=== PATIENT | female | born 1990 | race Caucasian/White ===

== ENCOUNTER 2025-04-18 08:52 | Observation (INO) | payer OTHER ==
[2025-04-18] MEDS ORDERED: HALOPERIDOL LACTATE 5 MG/ML ONE (09:22)
[2025-04-18] MEDS ORDERED: ONDANSETRON 4 MG/2 ML VIAL ONE (09:23)
[2025-04-18] MEDS: SODIUM CHLORIDE 0.9% 500 ML INFUS.BAG IV ONE (09:57)
[2025-04-18] MEDS: ONDANSETRON 4 MG/2 ML VIAL IVPUSH ONE (09:57)
[2025-04-18 10:02] LABS: ABSOLUTE IMMATURE GRANULOCYTES 0.06 x10^3/uL (0.0-0.031); BASOPHILS # 0.05 x10^3/uL (0.01-0.08); EOSINOPHIL % 0.3 % (0.7-5.8); EOSINOPHILS # 0.03 x10^3/uL (0.04-0.36); MCHC 34.1 g/dl (32.2-35.5); MEAN CELL VOLUME 88.4 fl (79.4-94.8); MEAN PLT VOLUME 10.3 fl (9.4-12.3); MONOCYTE # 0.61 x10^3/uL (0.24-0.86); MONOCYTE % 5.2 % (4.7-12.5); RDW 11.8 % (12.1-16.8)
[2025-04-18] MEDS ORDERED: ACETAMINOPHEN INJECTION 100 ML ONE ×2 (10:10→14:21)
[2025-04-18] MEDS: ACETAMINOPHEN 1000 MG/100 ML BAG IVPB ONE (10:30)
[2025-04-18 10:41] LABS: GLUCOSE,RANDOM 158.0 mg/dL (74-106); TOT PROT 7.4 g/dl (6.4-8.2)
[2025-04-18 10:42] LABS: CO2 20.0 mmol/L (21-32)
[2025-04-18 10:44] LABS: ALK PHOS 56.0 U/L (40-150)
[2025-04-18 10:47] LABS: CREATININE 0.84 mg/dL (0.55-1.3); SGOT/AST 22.0 U/L (5-34); SGPT/ALT 13.0 U/L (0-55)
[2025-04-18] MEDS ORDERED: TRIMETHOBENZAMIDE HCL 200MG/2ML INJ IM ONE (11:31)
[2025-04-18] MEDS: LACTATED RINGERS SOLUTION 1000 ML INFUS.BAG IV ONE (11:42)
[2025-04-18] MEDS: TRIMETHOBENZAMIDE HCL 200MG/2ML INJ IM ONE (11:42)
[2025-04-18] MEDS ORDERED: MAG HYDROX/AL HYDROX/SIMETH 30 ML UNIT-DOSE CUP ONE (11:51)
[2025-04-18] MEDS ORDERED: FAMOTIDINE 20 MG/50 ML IVPB 20 MG/50 ML MG IVPB ONE (11:51)
[2025-04-18] MEDS: FAMOTIDINE 20 MG/50 ML IVPB 20 MG/50 ML MG IVPB ONE (11:56)
[2025-04-18] MEDS: MAG HYDROX/AL HYDROX/SIMETH 30 ML UNIT-DOSE CUP PO ONE (11:56)
[2025-04-18] MEDS: HALOPERIDOL LACTATE 5 MG/ML IVPUSH ONE (12:26)
[2025-04-18 12:44] LABS: HCV DIAGNOSTIC IN-HOUSE W/RFLX NON-REACTIVE (NONREACTIVE); HIV INTERPRETATION NEGATIVE (NEGATIVE)
[2025-04-18 13:48] LABS: URINE APPEARANCE Clear; URINE BILIRUBIN Negative (NEGATIVE); URINE COLOR Yellow; URINE GLUCOSE (UA) Negative (NEGATIVE); URINE KETONE 1+ (NEGATIVE); URINE LEUK ESTERASE Negative (NEGATIVE); URINE NITRITE Negative (NEGATIVE); URINE PROTEIN Negative (NEGATIVE); URINE UROBILINOGEN 0.2 mg/dL (0.2-1.0)
[2025-04-18] MEDS: LACTATED RINGERS SOLUTION 1,000 ML/1,000 ML INFUS.BAG IV SCH (14:11)
[2025-04-18] MEDS: ACETAMINOPHEN 1000 MG/100 ML BAG IVPB PRN (14:34)
[2025-04-18] MEDS: ONDANSETRON 4 MG/2 ML VIAL IVPUSH PRN (14:55)
[2025-04-18] MEDS: diazePAM CARPU-JECT 10 MG/2 ML DISP.SYRIN IVPB ONE (15:16)
[2025-04-18 15:42] VITALS: BMI 46.7
[2025-04-18] MEDS: METOCLOPRAMIDE HCL INJECTION 10 MG/2 ML VIAL IVPUSH ONE (17:28)
[2025-04-18 20:05] VITALS: RESP 18
[2025-04-18] MEDS: diazePAM CARPU-JECT 10 MG/2 ML DISP.SYRIN IVPB PRN (21:13)
[2025-04-18] MEDS: HEPARIN NA (PORCINE) 5,000 UNITS/ML 1ML VIAL SQ SCH (21:20)
[2025-04-18] MEDS: SODIUM CHLORIDE 1,000 ML IV SCH (22:20)
[2025-04-18] MEDS: traZODone HCL 50 MG TABLET (FP) PO SCH (22:22)
[2025-04-18] MEDS: PROCHLORPERAZINE INJECTION 10 MG/2 ML VIAL IVPB ONE (23:36)
[2025-04-19 04:15] VITALS: BP 113/62; PULSE 60; TEMP 98.4
[2025-04-19] MEDS: FAMOTIDINE 10 MG TABLET PO ONE (04:20)
[2025-04-19] MEDS: METOCLOPRAMIDE HCL INJECTION 10 MG/2 ML VIAL IVPUSH ONE (06:16)
[2025-04-19] MEDS: LACTATED RINGERS SOLUTION 1,000 ML/1,000 ML INFUS.BAG IV SCH (08:50)
[2025-04-19 08:56] LABS: ABSOLUTE IMMATURE GRANULOCYTES 0.05 x10^3/uL (0.0-0.031); BASOPHILS # 0.04 x10^3/uL (0.01-0.08); EOSINOPHIL % 0.2 % (0.7-5.8); EOSINOPHILS # 0.02 x10^3/uL (0.04-0.36); MCHC 34.3 g/dl (32.2-35.5); MEAN CELL VOLUME 87.9 fl (79.4-94.8); MEAN PLT VOLUME 10.7 fl (9.4-12.3); MONOCYTE # 0.74 x10^3/uL (0.24-0.86); MONOCYTE % 7.0 % (4.7-12.5); RDW 11.5 % (12.1-16.8)
[2025-04-19 09:42] LABS: GLUCOSE,RANDOM 103.0 mg/dL (74-106)
[2025-04-19 09:43] LABS: CO2 23.0 mmol/L (21-32)
[2025-04-19 09:47] LABS: CREATININE 0.67 mg/dL (0.55-1.3)
[2025-04-19] MEDS: ESCITALOPRAM OXALATE 10 MG TABLET PO SCH (11:36)
[2025-04-19 12:44] LABS: GLUCOSE,RANDOM 115.0 mg/dL (74-106)
[2025-04-19 12:45] LABS: CO2 23.0 mmol/L (21-32)
[2025-04-19 12:49] LABS: CREATININE 0.67 mg/dL (0.55-1.3)
[2025-04-19] MEDS: POTASSIUM CHLORIDE ORAL LIQUID 20 MEQ/15 ML PO ONE (15:09)
[2025-04-19] MEDS: MAG HYDROX/AL HYDROX/SIMETH 30 ML UNIT-DOSE CUP PO ONE (17:11)
[2025-04-19] MEDS: ELECTROLYTE,ORAL 118 ML SOLUTION PO ONE (17:30)
[2025-04-19] MEDS ORDERED: diazePAM CARPU-JECT 10 MG/2 ML DISP.SYRIN IVPUSH PRN (22:00)
== END 2025-04-19 18:16 | disposition home or self-care (01) ==
LOC: JER 08:52 → JERBED 13:49 → J6S 14:29
PROVIDERS: ADMIT Internal Medicine; ATTEND Internal Medicine
PROC: 3E033NZ Introduction of Analgesics, Hypnotics, Sedatives into Peripheral Vein, Percutaneous Approach (ICD-10-PCS; principal; 2025-04-18)
PROC: 3E0337Z Introduction of Electrolytic and Water Balance Substance into Peripheral Vein, Percutaneous Approach (ICD-10-PCS; 2025-04-18)
PROC: 3E033GC Introduction of Other Therapeutic Substance into Peripheral Vein, Percutaneous Approach (ICD-10-PCS; 2025-04-18)
DX: F12.90 Cannabis use, unspecified, uncomplicated (principal); R11.2 Nausea with vomiting, unspecified; F41.8 Other specified anxiety disorders; R19.7 Diarrhea, unspecified
CPT/HCPCS: 36415; 74177-TC; 80048; 80053; 81003; 83690; 83735; 84703; 85025; 86803; 87086; 87389; 93005; 93010; 99285-25; G0378